=== PATIENT | male | born 1995 | race Caucasian/White ===

== ENCOUNTER 2019-02-25 08:10 | Emergency (ER) | payer OTHER ==
[~2019-02-25] VITALS: Ht 165.1 cm; Wt 63.6 kg
[2019-02-25 08:22] VITALS: Ht 165.1 cm; Wt 63.6 kg
[2019-02-25 09:00] VITALS: BP 142/78; PULSE 98; RESP 18
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
== END 2019-02-25 09:10 ==
LOC: E/R 08:10
DX: Z02.89 Encounter for other administrative examinations (principal); R40.2142 Coma scale, eyes open, spontaneous, at arrival to emergency department; R40.2242 Coma scale, best verbal response, confused conversation, at arrival to emergency department; R40.2362 Coma scale, best motor response, obeys commands, at arrival to emergency department
CPT/HCPCS: 99282